=== PATIENT | female | born 1985 | race Caucasian/White ===

== ENCOUNTER 2017-01-04 23:20 | Emergency (ER) | payer OTHER ==
[~2017-01-04] VITALS: Ht 162.6 cm; Wt 108.9 kg
[2017-01-05] MEDS ORDERED: lisinopril (00:14)
[2017-01-05] MEDS ORDERED: januvia (00:14)
[2017-01-05] MEDS ORDERED: MORPHINE SULFATE 4 MG/ML DISP.SYRIN. IV/SQ PRN (00:30)
[2017-01-05] MEDS ORDERED: IV NORMAL SALINE 1,000ML 1,000 ML IV SCH (00:30)
[2017-01-05] MEDS ORDERED: ONDANSETRON PF 4 MG/2 ML VIAL. IV ONE (00:45)
[2017-01-05] MEDS ORDERED: KETOROLAC 30 MG/ML VIAL. IV ONE (00:45)
--- NOTE | 2017-01-05 00:47 | PHYS DOC ---
General Chief Complaint: ABDOMINAL PAIN Stated Complaint: ABD/LEG PAIN Time Seen by MD: 23:59 Source: patient Exam Limitations: no limitations Problems: History of Present Illness Initial Comments Patient is a 31-year-old female who comes to the ED complaining of right-sided abdominal and leg pain. Patient states that for the past 2 days she's had right sided lower abdomen and right sided inner thigh discomfort. Symptoms are worse with movement improved with rest. She's had no nausea vomiting bowel or bladder symptoms no fever chills sweats or myalgias and her appetite is intact. She is status post cholecystectomy. She also states that a few days prior to symptoms onset she traveled via [employer] bus from [place] to [facility] with her small child in tow. No pre-arrival treatment patient is convinced today symptoms are related to chronic low abdomen pain complaints for which she states all of her doctors can find no cause or treatment. Denies any trauma no numbness tingling weakness or radiating symptoms. No leg weakness or saddle anesthesia denies low back pain. Timing/Duration: constant (2 days) Severity: moderate Modifying Factors: worse with movement, improves with rest Associated Symptoms: other Allergies: Coded Allergies: No Known Drug Allergies (Unverified , 01/05/17) Past Medical History Medical History: other (diabetes, hypertension, kidney stones, chronic abdominal pain) Surgical History: other (cholecystectomy, section 3, herniorrhaphy, postoperative section infection revision) Social History Smoker: cigarettes Alcohol: none Drugs: none Review of Systems Constitutional: denies chills, denies diaphoresis, denies fever, denies malaise Respiratory: denies cough, denies shortness of breath Cardiovascular: denies chest pain, denies palpitations Gastrointestinal: see HPI, denies constipation, denies diarrhea, denies nausea , denies vomiting Genitourinary: denies dysuria, denies frequency, denies hematuria Musculoskeletal: see HPI, denies back pain, denies joint swelling, denies neck pain Psychiatric/Neurological: denies headache, denies numbness, denies paresthesia Physical Exam General Appearance: no apparent distress, obese Ear, Nose, Throat: hearing grossly normal, normal ENT inspection Neck: non-tender, supple Respiratory: normal breath sounds, no respiratory distress Cardiovascular: normal peripheral pulses, regular rate, rhythm Gastrointestinal: soft (nondistended, right sided lower abdominal tenderness with iliopsoas hypertonicity and tenderness. 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 Labs not yet drawn, CT not yet completed. Pt will have prolonged ED course due to lab and radiology delay. PATIENT: LEE GRAY ACCOUNT: [id number] : 1985 LOCATION: ER AGE: 31 SEX: F EXAM STATUS: REG ER ORD. PHYSICIAN: LISA GORMAN DO REASON: RLQ pain PROCEDURE: CT ABD PELV W/ IV CONTRST ONLY PQRS Compliance Statement: One or more of the following individualized dose reduction techniques were utilized for this examination: 1. Automated exposure control 2. Adjustment of the mA and/or kV according to patient size 3. Use of iterative reconstruction technique CT ABD PELV W/ IV CONTRST ONLY Clinical Indication: : Severe lower abdominal pain, mostly right sided x 2 days. Hx: Kidney stones, hernia repair, , cholecystectomy. Comparison: None. Technique: Helical CT imaging of the abdomen and pelvis is performed after 75 cc Omnipaque 300 IV contrast. Oral contrast not given. Findings: The lung bases demonstrate minimal dependent atelectasis. Cardiac size normal. There is hepatosplenomegaly. Craniocaudal dimension of the spleen is 16.3 cm. Craniocaudal dimension of the liver is 24.9 cm. Cholecystectomy. There is fatty infiltration of the liver. There is a 1 cm relative hyperdensity in segment 2 of the liver, image 18. Common etiologies would be focal fatty sparing or hemangioma. Pancreas, adrenal glands, and abdominal aorta caliber are normal. There are at least 3 sub-5 mm nonobstructing right renal calculi. Kidneys enhance symmetrically. No hydronephrosis. Evaluation of bowel may be limited without oral contrast. Stomach unremarkable. Diastases of rectus abdominis muscles. There is ventral hernia mesh. No dilated small bowel. No colon wall thickening. The appendix is normal. No abdominal adenopathy or free fluid. Uterus unremarkable. There is 2.4 cm right ovary cyst. Urinary bladder is normal. No pelvic free fluid. No acute bone abnormality. IMPRESSION: 1. No acute abdominal or pelvic abnormality. 2. Hepatosplenomegaly. 3. Fatty infiltration of the liver. Small hyperdensity in segment 2 may be focal fatty sparing or a hemangioma. 4. Nonobstructing right renal calculi. 5. Small right ovary cyst. Electronically signed by: Michael Zamora MD (01/05/2017 2:11 AM) [facility] [id number] DICTATED AND SIGNED BY: MICHAEL ZAMORA MD DATE: 01/05/17204 CC: PCP,VIRGILIO; LISA GORMAN DO ~ I discussed the treatment plan and follow-up as well as smoking cessation. Patient expressed agreement and understanding. Departure Time of Disposition: 02:22 Disposition: 01 HOME, SELF-CARE Diagnosis: R psoas strain, candiduria, DM2 uncontroll, toba Condition: STABLE Patient Instructions: Radha Infection, Adult, Diabetes and Standards of Medical Care, Muscle Strain Additional Instructions: Activity as tolerated. Stop smoking, seek medical assistance if necessary. (Stopping smoking will improve your overall health and reduce pain complaints globally). Adhere to strict ADA diet and medication regimen. (Chronic pain complaints will not be controlled until your chronic diseases are appropriately managed and controlled). Aggressive hydration with Gatorade or water. Heating pad to affected area 20 minutes 4-6 times daily followed by gentle stretching. [id number] Tylenol or ibuprofen as needed. Prescription: Diflucan, cyclobenzaprine Follow-up with your doctor in 1-2 weeks for recheck. Return to the ED with new or changing symptoms. LISA GORMAN DO Jan 05, 2017 00:46
[2017-01-05 00:48] LABS: BARBITURATES NEG (NEG); BENZODIAZEPINES NEG (NEG); CANNABINOIDS NEG (NEG); COCAINE NEG (NEG); METHADONE NEG (NEG); OPIATES NEG (NEG); PHENCYCLIDINE NEG (NEG)
[2017-01-05 00:50] LABS: CLARITY,URINE HAZY; COLOR,URINE YELLOW
[2017-01-05 00:51] LABS: BACTERIA,URINE FEW /HPF (0-FEW); BILIRUBIN,URINE NEG (NEG); GLUCOSE,URINE 500 mg/dL (NEG); NITRITE,URINE NEG (NEG); SQUAMOUS EPITHELIAL CELL,UR MOD /LPF; UROBILINOGEN,URINE 0.2 mg/dL (0.2 mg/dL)
[2017-01-05 00:52] LABS: AMORPHOUS SEDIMENT,UR PRESENT /HPF; YEAST,URINE PRESENT /HPF
[2017-01-05 00:55] LABS: AMPHETAMINE/METHAMPHETAMINE NEG (NEG)
[2017-01-05] MEDS ORDERED: CONTRAST GIVEN MC PRN (01:00)
[2017-01-05] MEDS ORDERED: IOHEXOL 300 MG/ML 75 ML VIAL. IV ONE (01:00)
[2017-01-05 01:30] LABS: BASO % 0 % (0-3); EOS # 0.1 x10^3/uL (0.0-0.7); EOS % 2 % (0-3); HEMATOCRIT 41.7 % (36.0-47.0); HEMOGLOBIN 14.2 g/dL (12.0-15.5); LYMPH % 35 % (24-48); MEAN CORPUSCULAR HEMOGLOBIN 30 pg (25-35); MEAN CORPUSCULAR HGB CONC 34 g/dL (31-37); MEAN CORPUSCULAR VOLUME 87 fL (79-100); MONO # 0.6 x10^3/uL (0.0-1.1); MONO % 7 % (0-9); NEUT # 4.9 x10^3uL (1.8-7.7); NEUT % 57 % (31-73); PLATELET COUNT 202 x10^3/uL (140-400); RED CELL DISTRIBUTION WIDTH 13.5 % (11.5-14.5); WHITE BLOOD COUNT 8.7 x10^3/uL (4.0-11.0)
[2017-01-05 01:41] LABS: ALBUMIN 3.6 g/dL (3.4-5.0); ALBUMIN/GLOBULIN RATIO 0.8 (1.0-1.7); CALCIUM 8.9 mg/dL (8.5-10.1); CREATININE 0.8 mg/dL (0.6-1.0); GFR 83.1; POTASSIUM 3.8 mmol/L (3.5-5.1); TOTAL BILIRUBIN 0.4 mg/dL (0.2-1.0); TOTAL PROTEIN 7.9 g/dL (6.4-8.2)
--- NOTE | 2017-01-05 02:14 | RAD ---
PQRS Compliance Statement: One or more of the following individualized dose reduction techniques were utilized for this examination: 1. Automated exposure control 2. Adjustment of the mA and/or kV according to patient size 3. Use of iterative reconstruction technique CT ABD PELV W/ IV CONTRST ONLY Clinical Indication: : Severe lower abdominal pain, mostly right sided x 2 days. Hx: Kidney stones, hernia repair, , cholecystectomy. Comparison: None. Technique: Helical CT imaging of the abdomen and pelvis is performed after 75 cc Omnipaque 300 IV contrast. Oral contrast not given. Findings: The lung bases demonstrate minimal dependent atelectasis. Cardiac size normal. There is hepatosplenomegaly. Craniocaudal dimension of the spleen is 16.3 cm. Craniocaudal dimension of the liver is 24.9 cm. Cholecystectomy. There is fatty infiltration of the liver. There is a 1 cm relative hyperdensity in segment 2 of the liver, image 18. Common etiologies would be focal fatty sparing or hemangioma. Pancreas, adrenal glands, and abdominal aorta caliber are normal. There are at least 3 sub-5 mm nonobstructing right renal calculi. Kidneys enhance symmetrically. No hydronephrosis. Evaluation of bowel may be limited without oral contrast. Stomach unremarkable. Diastases of rectus abdominis muscles. There is ventral hernia mesh. No dilated small bowel. No colon wall thickening. The appendix is normal. No abdominal adenopathy or free fluid. Uterus unremarkable. There is 2.4 cm right ovary cyst. Urinary bladder is normal. No pelvic free fluid. No acute bone abnormality. IMPRESSION: 1. No acute abdominal or pelvic abnormality. 2. Hepatosplenomegaly. 3. Fatty infiltration of the liver. Small hyperdensity in segment 2 may be focal fatty sparing or a hemangioma. 4. Nonobstructing right renal calculi. 5. Small right ovary cyst. Electronically signed by: Michael Cardenas MD (01/05/2017 2:11 AM) [id number]
[2017-01-05] MEDS ORDERED: CYCLOBENZAPRINE 10MG 4TABLET STARTPACK PO ONE (02:30)
[2017-01-05 02:40] VITALS: BP 145/72
== END 2017-01-05 02:55 | disposition home or self-care (01) ==
LOC: ER 23:20
DX: S76.011A Strain of muscle, fascia and tendon of right hip, initial encounter (principal); B37.49 Other urogenital candidiasis; E11.9 Type 2 diabetes mellitus without complications; F17.210 Nicotine dependence, cigarettes, uncomplicated; I10 Essential (primary) hypertension; Z87.442 Personal history of urinary calculi; G89.29 Other chronic pain; X58.XXXA Exposure to other specified factors, initial encounter; Y93.89 Activity, other specified; Y92.89 Other specified places as the place of occurrence of the external cause; Y99.8 Other external cause status
CPT/HCPCS: 36415; 74177; 80053; 80305; 81001; 81025; 82947; 83690; 85027; 96361; 96374; 96375; 99285; G0480; J1885; J2270; J2405; G0481; J7030